=== PATIENT | male | born 1950 ===

== ENCOUNTER → 2017-06-18 | Outpatient (CLI) | payer MEDICARE ==
[2017-06-18 11:20] LABS: HGB 14.6 gm/dL (13.0-17.5); Hypochromasia Slight; MCH 27.2 pg (25.0-35.0); MCV 87.9 fL (80.0-100.0); Mean Platelet Volume 7.4; Platelet Count 307 k/uL (150-450); RBC 5.35 m/uL (4.30-5.90); RDW 14.4 % (11.5-15.5); WBC 7.1 k/uL (3.8-10.6)
[2017-06-18 11:36] LABS: Prothrombin Time 10.2 sec (9.0-12.0)
[2017-06-18 11:40] LABS: Albumin 4.3 g/dL (3.5-5.0); Bilirubin, Delta 0.3 mg/dL (0.0-0.2); Total Bilirubin 0.3 mg/dL (0.2-1.3); Total Protein 7.5 g/dL (6.3-8.2)
[2017-06-19 14:33] LABS: HCV Quant Log <1.08 (<1.08); HCV Quantitative Result <12 IU/mL (<12)
== END | disposition home or self-care (01) ==
LOC: LABWHC1 10:48
PROVIDERS: ATTEND Physician Assistant
DX: Z09 Encounter for follow-up examination after completed treatment for conditions other than malignant neoplasm (principal); Z86.19 Personal history of other infectious and parasitic diseases
CPT/HCPCS: 36415; 80076; 85027; 85610; 87522

== ENCOUNTER 2018-03-14 10:52 | Emergency (ER) | payer MEDICARE ==
[2018-03-14 10:56] VITALS: RESP 18; TEMP 97.8
--- NOTE | 2018-03-14 11:14 | ED ---
Wound/Laceration HPI - General Chief Complaint: Wound/Laceration Stated Complaint: thumb laceration Time Seen by Provider: 03/14/18 10:58 Source: patient, RN notes reviewed Mode of arrival: ambulatory Limitations: no limitations - History of Present Illness Initial Comments: 67-year-old male presents emergency Department chief complaint of right thumb laceration. Patient states that a piece of sheet metal cut his hand. Patient has full range of motion denies any paresthesias. Patient's tetanus is up-to- date this year. - Related Data Home Medications Medication Instructions Recorded Confirmed amLODIPine/ATORVASTATIN 1 each PO DAILY 10/28/13 12/18/13 [Amlodipine-Atorvast 5-20 mg] Ibuprofen [Advil] 200 mg PO DAILY PRN 03/14/18 03/14/18 Allergies Allergy/AdvReac Type Severity Reaction Status Date / Time Penicillins Allergy Unknown Verified 03/14/18 11:13 Childhood Review of Systems ROS Statement: Those systems with pertinent positive or pertinent negative responses have been documented in the HPI. ROS Other: All systems not noted in ROS Statement are negative. Past Medical History Past Medical History: COPD, Hyperlipidemia, Hypertension, Sleep Apnea/CPAP/BIPAP Additional Past Medical History / Comment(s): GALLBLADDER PAIN, CURRENTLY ON WEIGHT LOSS DIET FROM DR DAVIS History of Any Multi-Drug Resistant Organisms: None Reported Past Surgical History: Orthopedic Surgery Additional Past Surgical History / Comment(s): RIGHT ELBOW, WITH SCREWS Past Anesthesia/Blood Transfusion Reactions: No Reported Reaction Past Psychological History: No Psychological Hx Reported Smoking Status: Former smoker Past Alcohol Use History: None Reported Past Drug Use History: None Reported General Exam Limitations: no limitations General appearance: alert, in no apparent distress Head exam: Present: atraumatic, normocephalic, normal inspection Respiratory exam: Present: normal lung sounds bilaterally. Absent: respiratory distress, wheezes, rales, rhonchi, stridor Cardiovascular Exam: Present: regular rate, normal rhythm, normal heart sounds. Absent: systolic murmur, diastolic murmur, rubs, gallop, clicks Extremities exam: Present: other (Right thumb 2 cm laceration on the dorsal aspect full range of motion neurovascular intact no tendon involvement) Course Vital Signs 03/14/18 10:54 Temperature 97.8 F Pulse Rate 96 Respiratory 18 Rate Blood Pressure 175/110 O2 Sat by Pulse 95 Oximetry Procedures - Laceration Laceration #1 Consent Obtained: verbal consent Indication: laceration Site: hand (Right hand first digit) Size (cm): 2 Description: linear Depth: simple, single layer Anesthetic Used: lidocaine 1%, without epi Anesthesia Technique: local infiltration Amount (mls): 4 Pre-repair: wound explored, irrigated extensively, deep structures intact Type of Sutures: nylon Size of Sutures: 4-0 Number of Sutures: 4 Technique: simple, interrupted Patient Tolerated Procedure: well, no complications Medical Decision Making - Medical Decision Making 67-year-old male presented for right hand laceration. This was closed using sutures patient tolerated well there is no tendon involvement. Patient given wound care structures and return parameters. Disposition Clinical Impression: Laceration of right thumb Disposition: HOME SELF-CARE Condition: Stable Instructions: Care For Your Stitches (DC), Laceration (ED) Additional Instructions: Have sutures removed in 10 days.Please return to the Emergency Department if symptoms worsen or any other concerns. Is patient prescribed a controlled substance at d/c from ED?: No Referrals: Geovanni Davila MD [Primary Care Provider] - 1-2 days Time of Disposition: 11:14
[2018-03-14 11:26] VITALS: BP 144/79; PULSE 82
== END 2018-03-14 11:59 | disposition home or self-care (01) ==
LOC: EC 10:52
DX: S61.011A Laceration without foreign body of right thumb without damage to nail, initial encounter (principal); E78.5 Hyperlipidemia, unspecified; G47.30 Sleep apnea, unspecified; Z79.899 Other long term (current) drug therapy; Z99.89 Dependence on other enabling machines and devices; Z88.0 Allergy status to penicillin; Z87.891 Personal history of nicotine dependence; W26.8XXA Contact with other sharp object(s), not elsewhere classified, initial encounter
CPT/HCPCS: 12001; 99282

== ENCOUNTER → 2019-08-28 | Outpatient (CLI) | payer MEDICARE ==
--- NOTE | 2019-08-28 17:02 | CTL ---
EXAMINATION TYPE: CT Low Dose Lung DATE OF EXAM ORDERED: 08/28/2019 COMPARISON: None HISTORY: . Low Dose CT Lung Screening IV CONTRAST USED: None. SCREENING VISIT: First visit COMPARISON: None. TECHNIQUE: Low dose computed tomography scan was performed through the chest at 1 millimeter thick se ctions and reconstructed images in the coronal plane at [address] DIAGNOSTIC QUALITY: Somewhat limited given streak artifact from patient body habitus. FINDINGS: LUNG NODULES: Not presentLeft lung: no nodules identified.Right lung: no nodules identified. LUNGS: COPD: Severity: None Fibrosis: Severity:None Lymph nodes: None Other findings: None RIGHT PLEURAL SPACE: Effusion: None Calcification: None Thickening: None Pneumothorax: None LEFT PLEURAL SPACE: Effusion: None Calcification: None Thickening: None Pneumothorax: None HEART: Heart Size: Mildly enlarged Coronary calcification: Mild Pericardial effusion: None OTHER FINDINGS: Upper abdomen: No significant abnormality Bony thorax: Degenerative changes Supraclavicular region: No significant abnormalityOther: No significant abnormalityI IMPRESSION: Limited study although no discrete pulmonary nodule is identified with certainty. FOLLOW UP CT CHEST RECOMMENDATION: Follow-up screening in one year. Smoking cessation recommended. CT LUNG RAD: LUNG RAD CATEGORY negative category 1.
--- NOTE | 2019-09-03 16:00 | ECHOF ---
Referral Reason:[id number] PERSONAL HX TOBACCO USE/NICOTINE DEPEND MEASUREMENTS -------- HEIGHT: 165.1 cm WEIGHT: 136.1 kg BP: RVIDd: 4.0 cm (< 3.3) IVSd: 1.1 cm (0.6 - 1.1) LVIDd: 5.1 cm (3.9 - 5.3) LVPWd: 1.3 cm (0.6 - 1.1) IVSs: 1.4 cm LVIDs: 2.4 cm LVPWs: 1.4 cm LA Diam: 4.0 cm (2.7 - 3.8) Ao Diam: 3.1 cm (2.0 - 3.7) AV Cusp: 2.2 cm (1.5 - 2.6) MV EXCURSION: 19.390 mm (> 18.000) MV EF SLOPE: 58 mm/s (70 - 150) EPSS: 0.5 cm MV E Ronald: 0.77 m/s MV DecT: 228 ms MV A Ronald: 0.78 m/s MV E/A Ratio: 0.99 RAP: 5.00 mmHg RVSP: 23.88 mmHg FINDINGS -------- Sinus rhythm. This was a technically adequate study. Morbid Obesity There is mild concentric left ventricular hypertrophy. Overall left ventricular systolic function i s low-normal with, an EF between 50 - 55 %. The right ventricle is moderate to severely enlarged. The left atrial size is normal. The right atrial size is normal. There is mild aortic valve sclerosis. There is no evidence of aortic regurgitation. Mild mitral annular calcification present. Mild mitral regurgitation is present. Mild tricuspid regurgitation present. The right ventricular systolic pressure, as measured by Doppl er, is 23.88mmHg. The pulmonic valve was not well visualized. The aortic root size is normal. Echo free space represents a pericardial fat pad. CONCLUSIONS -------- 1. Sinus rhythm. 2. This was a technically adequate study. 3. Morbid Obesity 4. There is mild concentric left ventricular hypertrophy. 5. Overall left ventricular systolic function is low-normal with, an EF between 50 - 55 %. 6. The right ventricle is moderate to severely enlarged. 7. The left atrial size is normal. 8. The right atrial size is normal. 9. There is mild aortic valve sclerosis. 10. Mild mitral annular calcification present. 11. Mild mitral regurgitation is present. 12. Mild tricuspid regurgitation present. 13. The right ventricular systolic pressure, as measured by Doppler, is 23.88mmHg. 14. The pulmonic valve was not well visualized. 15. The aortic root size is normal. 16. Echo free space represents a pericardial fat pad. AIRPLANE FUELER: Cinthya Chisholm RDCS
== END | disposition home or self-care (01) ==
LOC: RADCTMAIN 14:44
PROVIDERS: ATTEND Family Medicine
DX: R06.09 Other forms of dyspnea (principal)
CPT/HCPCS: 93306; G0297

== ENCOUNTER 2019-11-22 20:49 | Observation (INO) | payer MEDICARE ==
[2019-11-22] MEDS ORDERED: IPRATROPIUM-ALBUTEROL 3 ML NEB INHALATION STA ×3 (21:09→22:37)
[2019-11-22] MEDS ORDERED: methylPREDNISolone SOD SUCCI 125 MG/2 ML VIAL IV STA (21:09)
--- NOTE | 2019-11-22 21:10 | ED ---
SOB HPI - General Chief Complaint: Shortness of Breath Stated Complaint: LEBRON Time Seen by Provider: 11/22/19 21:08 Source: patient Mode of arrival: ambulatory Limitations: no limitations - History of Present Illness Initial Comments: Patient is a 69-year-old male with history of COPD presenting to emergency Department with chief complaint of shortness of breath. Patient reports he has developed increasing shortness of breath over the last 3 days with audible wheezing. Patient reports his nebulized ipratropium is not keeping his COPD symptoms and control. Patient states that he also used an albuterol inhaler with minimal improvement in symptoms. Also reports a nonproductive cough without any sputum production. He denies any night sweats was to chills. Denies any chest pain nausea vomiting diarrhea. Patient states he is currently experiencing an acute flare up of his COPD. Patient states typically his primary care physician is able to take care of it. States the steroids work well for his symptoms. - Related Data Home Medications Medication Instructions Recorded Confirmed amLODIPine/ATORVASTATIN 1 tab PO DAILY 10/28/13 03/14/18 [Amlodipine-Atorvast 5-20 mg] Ibuprofen [Advil] 200 mg PO DAILY PRN 03/14/18 03/14/18 Allergies Allergy/AdvReac Type Severity Reaction Status Date / Time Penicillins Allergy Unknown Verified 11/22/19 20:57 Childhood Review of Systems ROS Statement: Those systems with pertinent positive or pertinent negative responses have been documented in the HPI. ROS Other: All systems not noted in ROS Statement are negative. Past Medical History Past Medical History: COPD, Hyperlipidemia, Hypertension, Sleep Apnea/CPAP/BIPAP Additional Past Medical History / Comment(s): GALLBLADDER PAIN, CURRENTLY ON WEIGHT LOSS DIET FROM DR DAVIS History of Any Multi-Drug Resistant Organisms: None Reported Past Surgical History: Orthopedic Surgery Additional Past Surgical History / Comment(s): RIGHT ELBOW, WITH SCREWS Past Anesthesia/Blood Transfusion Reactions: No Reported Reaction Past Psychological History: No Psychological Hx Reported Smoking Status: Former smoker Past Alcohol Use History: None Reported Past Drug Use History: None Reported General Exam Limitations: no limitations General appearance: alert, in no apparent distress, obese Head exam: Present: atraumatic, normocephalic, normal inspection Eye exam: Present: normal appearance, PERRL, EOMI Pupils: Present: normal accommodation ENT exam: Present: normal exam, normal oropharynx, mucous membranes moist, TM's normal bilaterally, normal external ear exam Neck exam: Present: normal inspection, full ROM. Absent: tenderness Respiratory exam: Present: wheezes (Bilateral wheezing, diffusely.), decreased breath sounds (Bilateral). Absent: normal lung sounds bilaterally, respiratory distress, rales Cardiovascular Exam: Present: regular rate, normal rhythm, normal heart sounds Extremities exam: Present: normal inspection, full ROM, normal capillary refill, other (+2 ulnar and radial pulses bilateral.). Absent: tenderness Back exam: Present: normal inspection, full ROM. Absent: tenderness, CVA tenderness (L), muscle spasm Neurological exam: Present: alert, oriented X3, normal gait Psychiatric exam: Present: normal affect, normal mood Skin exam: Present: warm, dry, intact, normal color Course Vital Signs 11/22/19 11/22/19 11/22/19 20:55 21:26 21:42 Temperature 98.7 F Pulse Rate 104 H 88 90 Respiratory 22 20 20 Rate Blood Pressure 165/74 O2 Sat by Pulse 91 L Oximetry 11/22/19 11/22/19 11/22/19 21:51 22:38 22:52 Temperature Pulse Rate 98 95 Respiratory 22 20 Rate Blood Pressure 139/65 O2 Sat by Pulse 94 L Oximetry 11/22/19 23:02 Temperature Pulse Rate 95 Respiratory Rate Blood Pressure O2 Sat by Pulse Oximetry Medical Decision Making - Medical Decision Making Patient is 69-year-old male with history of COPD presents emergency Department with chief complaint of shortness of breath. This has been ongoing since . On physical examination, patient denies some decreased breath sounds, although the patient has large body habitus. Patient also has diffuse bilateral wheezing. He denies any chest pain states this is his typical COPD exacerbation. He does not use oxygen at home. Patient was given 125 mg of Solu-Medrol and 3 DuoNeb treatments. On reevaluation, she continues to have wheezing although he states his dyspnea has slightly improved. He saturating 99% on 2 L of oxygen. Patient will be that if further medical management. Case discussed with Dr Pryor. Admitting is Dr De Souza - Lab Data Result diagrams: 11/22/19 21:22 11/22/19 21:22 Lab Results 11/22/19 11/22/19 11/22/19 Range/Units 21:22 21:22 21:22 WBC 11.0 H (3.8-10.6) k/uL RBC 5.02 (4.30-5.90) m/uL Hgb 14.0 (13.0-17.5) gm/dL Hct 44.9 (39.0-53.0) % MCV 89.5 (80.0-100.0) fL MCH 28.0 (25.0-35.0) pg MCHC 31.2 (31.0-37.0) g/dL RDW 15.2 (11.5-15.5) % Plt Count 284 (150-450) k/uL Neutrophils % 66 % Lymphocytes % 16 % Monocytes % 8 % Eosinophils % 8 % Basophils % 1 % Neutrophils # 7.2 (1.3-7.7) k/uL Lymphocytes # 1.7 (1.0-4.8) k/uL Monocytes # 0.9 (0-1.0) k/uL Eosinophils # 0.9 H (0-0.7) k/uL Basophils # 0.1 (0-0.2) k/uL Hypochromasia Slight Sodium 143 (137-145) mmol/L Potassium 4.1 (3.5-5.1) mmol/L Chloride 108 H (98-107) mmol/L Carbon Dioxide 27 (22-30) mmol/L Anion Gap 8 mmol/L BUN 18 (9-20) mg/dL Creatinine 1.02 (0.66-1.25) mg/dL Est GFR (CKD-EPI)AfAm 87 (>60 ml/min/1.73 sqM) Est GFR (CKD-EPI)NonAf 75 (>60 ml/min/1.73 sqM) Glucose 129 H (74-99) mg/dL Plasma Lactic Acid Horacio 1.3 (0.7-2.0) mmol/L Calcium 9.0 (8.4-10.2) mg/dL Total Bilirubin 0.3 (0.2-1.3) mg/dL AST 20 (17-59) U/L ALT 20 (4-49) U/L Alkaline Phosphatase 70 (38-126) U/L NT-Pro-B Natriuret Pep pg/mL Total Protein 7.4 (6.3-8.2) g/dL Albumin 4.2 (3.5-5.0) g/dL 09/26/20 Range/Units 21:22 WBC (3.8-10.6) k/uL RBC (4.30-5.90) m/uL Hgb (13.0-17.5) gm/dL Hct (39.0-53.0) % MCV (80.0-100.0) fL MCH (25.0-35.0) pg MCHC (31.0-37.0) g/dL RDW (11.5-15.5) % Plt Count (150-450) k/uL Neutrophils % % Lymphocytes % % Monocytes % % Eosinophils % % Basophils % % Neutrophils # (1.3-7.7) k/uL Lymphocytes # (1.0-4.8) k/uL Monocytes # (0-1.0) k/uL Eosinophils # (0-0.7) k/uL Basophils # (0-0.2) k/uL Hypochromasia Sodium (137-145) mmol/L Potassium (3.5-5.1) mmol/L Chloride (98-107) mmol/L Carbon Dioxide (22-30) mmol/L Anion Gap mmol/L BUN (9-20) mg/dL Creatinine (0.66-1.25) mg/dL Est GFR (CKD-EPI)AfAm (>60 ml/min/1.73 sqM) Est GFR (CKD-EPI)NonAf (>60 ml/min/1.73 sqM) Glucose (74-99) mg/dL Plasma Lactic Acid Horacio (0.7-2.0) mmol/L Calcium (8.4-10.2) mg/dL Total Bilirubin (0.2-1.3) mg/dL AST (17-59) U/L ALT (4-49) U/L Alkaline Phosphatase (38-126) U/L NT-Pro-B Natriuret Pep 115 pg/mL Total Protein (6.3-8.2) g/dL Albumin (3.5-5.0) g/dL Disposition Clinical Impression: Dyspnea, COPD exacerbation Disposition: ADMITTED IP TO THIS HOSP Condition: Fair Is patient prescribed a controlled substance at d/c from ED?: No Referrals: Geovanni Davila MD [Primary Care Provider] - 1-2 days Time of Disposition: 23:59
[2019-11-22 21:45] LABS: Basophils # (A) 0.1 k/uL (0-0.2); Basophils % (A) 1 %; Eosinophils # (A) 0.9 k/uL (0-0.7); Eosinophils % (A) 8 %; HCT 44.9 % (39.0-53.0); Hypochromasia Slight; Lymphocytes # (A) 1.7 k/uL (1.0-4.8); Lymphocytes % (A) 16 %; MCHC 31.2 g/dL (31.0-37.0); MCV 89.5 fL (80.0-100.0); Mean Platelet Volume 7.4; Monocytes # (A) 0.9 k/uL (0-1.0); Monocytes % (A) 8 %; Neutrophils # (A) 7.2 k/uL (1.3-7.7); Neutrophils % (A) 66 %; Platelet Count 284 k/uL (150-450); RBC 5.02 m/uL (4.30-5.90); RDW 15.2 % (11.5-15.5)
[2019-11-22 22:08] LABS: Albumin 4.2 g/dL (3.5-5.0); Potassium 4.1 mmol/L (3.5-5.1); Total Bilirubin 0.3 mg/dL (0.2-1.3); Total Protein 7.4 g/dL (6.3-8.2)
--- NOTE | 2019-11-22 22:12 | XR ---
EXAMINATION TYPE: XR chest 2V DATE OF EXAM: 11/22/2019 COMPARISON: 12/18/2013 HISTORY: Difficulty breathing TECHNIQUE: FINDINGS: There is some mild coarsening of the pulmonary interstitial markings. Heart size is normal. There is no pleural fluid. There are chest leads. IMPRESSION: New mild pulmonary interstitial edema compared to old exam. The appearance is nonspecific . No pleural fluid seen to suggest heart failure.
[2019-11-22] MEDS ORDERED: IPRATROPIUM-ALBUTEROL 3 ML NEB INHALATION PRN (23:57)
--- NOTE | 2019-11-23 01:54 | P.HPIM ---
History of Present Illness H&P Date: 11/23/19 Patient is a 69-year-old male with a PMH of COPD, hypertension, hyperkalemia, and objective sleep apnea who presented to the ED with complaints of shortness of breath ongoing for the past 3-4 days. He reports that despite taking his inhalers at home, he continues to have this dyspnea along with a nonproductive cough. He notes that in the past he has had multiple mild episodes when he would see his primary care doctor and would receive prednisone taper orally. He otherwise denied any additional complaints. He denied chest pain, fever, chills, nausea, vomiting, abdominal pain, or diarrhea. Chest x-ray revealed mild interstitial edema. Laboratory evaluation was reviewed with proBNP 115, l actic acid 1.3, and WBC count 11.0. Review of Systems Pertinent positives and negatives as discussed in HPI, a complete review of systems was performed and all other systems are negative. Past Medical History Past Medical History: COPD, Hyperlipidemia, Hypertension, Sleep Apnea/CPAP/BIPAP Additional Past Medical History / Comment(s): GALLBLADDER PAIN, CURRENTLY ON WEIGHT LOSS DIET FROM DR DAVIS History of Any Multi-Drug Resistant Organisms: None Reported Past Surgical History: Orthopedic Surgery Additional Past Surgical History / Comment(s): RIGHT ELBOW, WITH SCREWS Past Anesthesia/Blood Transfusion Reactions: No Reported Reaction Past Psychological History: No Psychological Hx Reported Smoking Status: Former smoker Past Alcohol Use History: None Reported Past Drug Use History: None Reported Medications and Allergies Home Medications Medication Instructions Recorded Confirmed Type amLODIPine/ATORVASTATIN 1 tab PO DAILY 10/28/13 03/14/18 History [Amlodipine-Atorvast 5-20 mg] Ibuprofen [Advil] 200 mg PO DAILY PRN 03/14/18 03/14/18 History Allergies Allergy/AdvReac Type Severity Reaction Status Date / Time Penicillins Allergy Unknown Verified 11/22/19 20:57 Childhood Physical Exam Vitals: Vital Signs Temp Pulse Resp BP Pulse Ox 11/23/19 01:02 100 20 165/86 98 11/22/19 23:02 95 11/22/19 22:52 95 11/22/19 22:38 98 20 139/65 94 L 11/22/19 21:51 22 11/22/19 21:42 90 20 11/22/19 21:26 88 20 11/22/19 20:55 98.7 F 104 H 22 165/74 91 L Intake and Output 11/22/19 11/22/19 11/23/19 14:59 22:59 06:59 Other: Weight 131.088 kg General: non toxic, no distress, appears at stated age, morbidly obese Derm: no unusual rashes/lesions no unusual ecchymoses, warm, dry Head: atraumatic, normocephalic, symmetric Eyes: EOMI, no lid lag, anicteric sclera, pupils equal round reactive to light ENT: Nose and ears atraumatic, no thrush, no pharyngeal erythema Neck: No thyromegaly, no cervical lymphadenopathy, trachea midline, supple Mouth: no lip lesion, mucus membranes moist Cardiovascular: S1S2 reg, no murmur, positive posterior tibial pulse bilateral, 2+ bilateral lower extremity pitting edema, capillary refill less than 2 seconds Lungs: Poor air entry bilaterally with expiratory wheezing, no rales or rhonchi appreciated, no accessory muscle use Abdominal: soft, nontender to palpation, no guarding, no appreciable organomegaly, normal bowel sounds Ext: no gross muscle atrophy, muscle strength 5 out of 5 in all 4 extremities grossly, no contractures, Neuro: CN II-XI grossly intact, light touch intact all 4 extremities, finger to nose within normal limits, Psych: Alert, oriented, appropriate affect Results CBC & Chem 7: 11/22/19 21:22 11/22/19 21:22 Labs: Abnormal Lab Results - Last 24 Hours (Table) 11/22/19 11/22/19 Range/Units 21:22 21:22 WBC 11.0 H (3.8-10.6) k/uL Eosinophils # 0.9 H (0-0.7) k/uL Chloride 108 H (98-107) mmol/L Glucose 129 H (74-99) mg/dL Assessment and Plan Plan: Acute COPD exacerbation -Continue with Solu-Medrol -DuoNeb's [id number] and as needed -Supplemental oxygen -Pulmonary consult -Supplemental sliding scale blood glucose monitoring Chronic conditions: Hypertension, hyperlipidemia -Continue home meds DVT prophylaxis -Heparin subq The patient is admitted with an anticipated less than 2 midnight stay for evaluation of acute COPD exacerbation CODE STATUS: Full Code Discussed with: Patient Anticipated discharge date: 11/[address]: Home A total of 35 minutes was spent on the care of this complex patient more than 50% of the time was spent in counseling and care coordination.
[2019-11-23] MEDS ORDERED: methylPREDNISolone SOD SUCCI 40 MG/ML 1 ML VIAL IV SCH (06:00)
[2019-11-23 06:58] LABS: Glucose,Whole Blood 158 mg/dL (75-99)
[2019-11-23] MEDS: IPRATROPIUM-ALBUTEROL 3 ML NEB INHALATION SCH ×4 (07:41→19:52)
[2019-11-23] MEDS: HEPARIN SODIUM,PORCINE 5,000 UNIT/ML 1 ML VIAL SQ SCH ×2 (08:01→15:49)
[2019-11-23] MEDS: INSULIN ASPART (NovoLOG) 100 UNIT/ML VIAL SQ SCH ×3 (08:02→16:18)
[2019-11-23] MEDS ORDERED: predniSONE 20 MG TAB PO SCH (09:00)
[2019-11-23] MEDS ORDERED: NON FORMULARY DRUG (Amlodipine Besylate/Benazepril [Amlodipine Besylate/Benazepril 10-40 M PO SCH (11:00)
--- NOTE | 2019-11-23 11:01 | P.PN ---
Subjective Progress Note Date: 11/23/19 Principal diagnosis: Acute COPD exacerbation Patient is doing well today. His shortness of breath is improving. He said that his breathing is not back to normal baseline yet. Objective - Vital Signs Vital signs: Vital Signs Temp 97.8 F 11/23/19 06:53 Pulse 102 H 11/23/19 07:49 Resp 19 11/23/19 06:53 BP 157/83 11/23/19 06:53 Pulse Ox 94 L 11/23/19 06:53 Intake & Output 11/22/19 11/23/19 11/23/19 18:59 06:59 18:59 Weight 131.088 kg Other: # Voids 1 1 - Exam General: The patient is awake and alert, in no distress Eye: there is normal conjunctiva bilaterally. Neck: The neck is supple, there is no JVD. Cardiovascular: Normal S1-S2, no S3-S4, no murmurs. Respiratory: Lungs slightly diminished with scattered wheezing Gastrointestinal: Abdomen is soft, nontender Musculoskeletal: There is no pedal edema. Neurological:. Speech is normal. Skin: Skin is warm and dry - Labs CBC & Chem 7: 11/22/19 21:22 11/22/19 21:22 Labs: Abnormal Lab Results - Last 24 Hours (Table) 11/22/19 11/22/19 11/23/19 Range/Units 21:22 21:22 06:57 WBC 11.0 H (3.8-10.6) k/uL Eosinophils # 0.9 H (0-0.7) k/uL Chloride 108 H (98-107) mmol/L Glucose 129 H (74-99) mg/dL POC Glucose (mg/dL) 158 H (75-99) mg/dL Assessment and Plan Assessment: This is a 69-year-old male with past medical history noted below who presented to the emergency room with worsening shortness of breath. Patient was evaluated in the ER and currently placed in observation for further management of his medical problems noted below. 1. Acute COPD exacerbation, received IV Solu-Medrol 125 mg in the ED. Continue prednisone 40 mg daily. DuoNeb scheduled. 2. Essential hypertension, blood pressure within acceptable range. Continue home medications. 3. Acute hypoxic respiratory failure requiring O2 via nasal cannula. Wean off O2 as tolerated for O2 sat greater than 90%. Patient is not on oxygen at home. 4. DVT prophylaxis with subcu heparin Today, I reviewed his medication list and lab work results. Encouraged ambulation. Wean off O2 as tolerated. That despite discharge home tomorrow.
[2019-11-23 11:16] LABS: Glucose,Whole Blood 178 mg/dL (75-99)
[2019-11-23] MEDS: lisinopriL 20 MG TAB PO SCH (11:34)
[2019-11-23] MEDS: amLODIPine 10 MG TAB PO SCH (11:35)
[2019-11-23 16:18] LABS: Glucose,Whole Blood 133 mg/dL (75-99)
[2019-11-23] MEDS ORDERED: LATANOPROST 0.005% OPHTH DROPS 2.5 ML BTL BOTH EYES SCH (21:00)
[2019-11-23 21:28] LABS: Glucose,Whole Blood 155 mg/dL (75-99)
[2019-11-24] MEDS: HEPARIN SODIUM,PORCINE 5,000 UNIT/ML 1 ML VIAL SQ SCH ×2 (00:49→08:17)
[2019-11-24 06:43] LABS: Glucose,Whole Blood 129 mg/dL (75-99)
[2019-11-24 08:11] VITALS: RESP 18; TEMP 97.9
[2019-11-24 08:13] VITALS: BP 141/87
[2019-11-24] MEDS: lisinopriL 20 MG TAB PO SCH (08:16)
[2019-11-24] MEDS: amLODIPine 10 MG TAB PO SCH (08:16)
[2019-11-24] MEDS: INSULIN ASPART (NovoLOG) 100 UNIT/ML VIAL SQ SCH ×2 (08:17→12:34)
[2019-11-24] MEDS: IPRATROPIUM-ALBUTEROL 3 ML NEB INHALATION SCH ×2 (08:51→12:12)
[2019-11-24] MEDS ORDERED: predniSONE 20 MG TAB PO SCH (09:00)
--- NOTE | 2019-11-24 10:16 | P.DS ---
Providers Date of admission: 11/24/19 09:20 Expected date of discharge: 11/24/19 Attending physician: Lillian De Souza MD Primary care physician: Geovanni Excela [facility] Course: This is a 69-year-old male with past medical history noted below that presented to the emergency room with worsening shortness of breath for the past few days. Patient was evaluated in the ER and admitted to the hospital for further management of his medical problems noted below. 1. Acute COPD exacerbation, received IV Solu-Medrol 125 mg in the ED. Continue prednisone 40 mg daily to finish 5 days course. DuoNeb every 4 hours. Chest x- ray showed mild pulmonary edema but no clinical evidence of CHF and BNP was normal. No infiltrate to suggest pneumonia. 2. Acute on chronic hypoxic respiratory failure now requiring 2 L of oxygen. Home oxygen will be set up. Patient will follow-up with his artist's representative in the office in one week as directed 3. Obstructive sleep apnea on CPAP at home 4. Essential hypertension, blood pressure within acceptable range. Continue home medications. Patient overall condition improved throughout his hospital stay. His shortness of breath resolved. He will be discharged home in a stable condition. For further details about this observation stay please refer to the electronic chart. Patient Condition at Discharge: Stable Plan - Discharge Summary Discharge Rx Participant: No New Discharge Prescriptions: New predniSONE [Deltasone] 40 mg PO DAILY 5 Days #10 tab Continue Vitamin D3 (Unknown Strength) 1 tab PO DAILY Fish Oil (Unknown Strength) 1 tab PO DAILY amLODIPine BESYLATE/BENAZEPRIL [amLODIPine BESYLATE/BENAZEPRIL 10-40 MG] 1 cap PO AC-BRKFST Latanoprost/Pf [Latanoprost 0.005% Eye Drop] 1 drop BOTH EYES HS Ipratropium-Albuterol Nebulize [Duoneb 0.5 mg-3 mg/3 ml Soln] 3 ml INHALATION RT-Q4H PRN PRN Reason: Shortness Of Breath Albuterol Inhaler [Ventolin Hfa Inhaler] 2 puff INHALATION RT-Q4H PRN PRN Reason: Shortness Of Breath [employer] Nsaid (Unknown Strength) 1 tab PO DAILY PRN PRN Reason: knee pain Discharge Medication List Albuterol Inhaler [Ventolin Hfa Inhaler] 2 puff INHALATION RT-Q4H PRN 11/23/19 [History] Fish Oil (Unknown Strength) 1 tab PO DAILY 11/23/19 [History] Ipratropium-Albuterol Nebulize [Duoneb 0.5 mg-3 mg/3 ml Soln] 3 ml INHALATION RT-Q4H PRN 11/23/19 [History] Latanoprost/Pf [Latanoprost 0.005% Eye Drop] 1 drop BOTH EYES HS 11/23/19 [History] [employer] Nsaid (Unknown Strength) 1 tab PO DAILY PRN 11/23/19 [History] Vitamin D3 (Unknown Strength) 1 tab PO DAILY 11/23/19 [History] amLODIPine BESYLATE/BENAZEPRIL [amLODIPine BESYLATE/BENAZEPRIL 10-40 MG] 1 cap PO AC-BRKFST 11/23/19 [History] predniSONE [Deltasone] 40 mg PO DAILY 5 Days #10 tab 11/24/19 [Rx] Follow up Appointment(s)/Referral(s): Geovanni Davila MD [Primary Care Provider] - 1-2 days Jovita Vora MD [STAFF PHYSICIAN] - 1 Week Discharge Disposition: HOME SELF-CARE
[2019-11-24 12:25] VITALS: PULSE 88
== END 2019-11-24 14:36 | disposition home or self-care (01) ==
LOC: EC 20:49 → 1SOBS 23:58 → INTOOBSV 11-24 09:20 → OBSVTOIN 11-24 09:20 → UNDODISIN 11-24 14:36
PROVIDERS: ADMIT Internal Medicine; ATTEND Internal Medicine
DX: J44.1 Chronic obstructive pulmonary disease with (acute) exacerbation (principal); J96.21 Acute and chronic respiratory failure with hypoxia; G47.33 Obstructive sleep apnea (adult) (pediatric); I10 Essential (primary) hypertension; E78.5 Hyperlipidemia, unspecified; Z99.89 Dependence on other enabling machines and devices; Z79.1 Long term (current) use of non-steroidal anti-inflammatories (NSAID); Z79.899 Other long term (current) drug therapy; Z88.0 Allergy status to penicillin; Z87.891 Personal history of nicotine dependence; Z98.890 Other specified postprocedural states
CPT/HCPCS: 96372 ×2; 96376; 96374; 99285; 36415; 94640 ×6; 93005; 83880; 80053; 83605; 85025; 71046; G0378 ×2; J1644 ×2; J2920; J2930; J7512 ×2

== ENCOUNTER → 2020-04-16 | Outpatient (CLI) | payer MEDICARE ==
--- NOTE | 2020-04-16 14:26 | US ---
EXAMINATION TYPE: US duplex aorta DATE OF EXAM: 04/16/2020 COMPARISON: CLINICAL HISTORY: Z13.6 screening AAA. HTN. Previous smoker. No history of AAA per patient. EXAM MEASUREMENTS: Abdominal Aorta: Proximal: 2.7 x 2.8 cm Mid: 2.2 x 2.5 cm Distal: 2.0 x 2.0 cm Bifurcation: Not visualized Limited visualization due to patient body habitus and overlying bowel gas No AAA visualized in portions seen. IMPRESSION: 1. Normal abdomen aorta
== END | disposition home or self-care (01) ==
LOC: RADUSWWP 07:44
PROVIDERS: ATTEND Family Medicine
DX: Z13.6 Encounter for screening for cardiovascular disorders (principal)
CPT/HCPCS: 93979

== ENCOUNTER 2023-09-14 09:29 | Day surgery (SDC) | payer MEDICARE ==
[2023-09-11 15:57] VITALS: BMI 45.0
[~2023-09-14 09:29] MED LIST: LACTATED RINGERS 1,000 ML IV SCH; LIDOCAINE 1% (10MG/ML) FOR IV START INTRADERMA PRN
[2023-09-14 10:08] VITALS: TEMP 97.4
[2023-09-14 10:25] LABS: Glucose,Whole Blood 101 mg/dL (70-110)
[2023-09-14] MEDS: IV FLUID CONTINUATION 1,000 ML IV ONE (10:30)
[2023-09-14] MEDS ORDERED: PROPOFOL 10 MG/ML 20 ML VIAL IV ONE (11:13)
--- NOTE | 2023-09-14 11:35 | P.PCN ---
Date of Procedure: 09/14/23 Procedure(s) Performed: BRIEF HISTORY: Patient is a 72-year-old pleasant White male scheduled for an elective colonoscopy as a part of Screening for colon cancer/positive:cologuard PROCEDURE PERFORMED: Colonoscopy With snare polypectomy. PREOPERATIVE DIAGNOSIS: Screening for colon cancer/positive cologuard:. IV sedation per Anesthesia. PROCEDURE: After informed consent was obtained, the patient, was brought into the endoscopy unit. IV sedation was administered by Anesthesia under continuous monitoring. Digital rectal examination was normal. Initially the Olympus CF-160 flexible video colonoscope was then inserted in the rectum, gradually advanced into the cecum without any difficulty. Careful examination was performed as the scope was gradually being withdrawn. Ileocecal valve and the appendiceal orifice were visualized and appeared normal. Prep was excellent. Mucosa of the cecum,Had a 3 mm polyp that was removed by cold biopsy. Rest of the ascending colon,Appeared normal. In the transverse colon there was a 1.5 cm broad-based polyp removed by snare polypectomy. In the descending colon there was a 5 mm and 6 mm polyp removed by cold snare polypectomy. Rest of the transverse colon, descending colon, sigmoid colon, and rectum appeared normal. Retroflexion was performed in the rectum and no lesions were seen. The patient tolerated the procedure well. IMPRESSION: 3 mm cecal polyp status post cold biopsy 1.5 cm broad-based proximal Transversecolon polyp status post snare polypectomy 5 mm and 6 mm reasoning colon polyp status post polypectomy RECOMMENDATIONS: Findings of this examination were discussed with the patient as well as his family.He was advised to follow with the biopsy biopsies results. If the biopsies adenoma he can have a repeat colonoscopy in 3 years.
[2023-09-14 11:54] VITALS: BP 116/77; PULSE 76; RESP 16
== END 2023-09-14 12:15 | disposition home or self-care (01) ==
LOC: ORWHC2ENDO 09:29
PROVIDERS: ATTEND Internal Medicine Gastroenterology
DX: D12.0 Benign neoplasm of cecum (principal); D12.3 Benign neoplasm of transverse colon; D12.4 Benign neoplasm of descending colon; I10 Essential (primary) hypertension; E78.5 Hyperlipidemia, unspecified; E66.9 Obesity, unspecified; G47.33 Obstructive sleep apnea (adult) (pediatric); J44.9 Chronic obstructive pulmonary disease, unspecified; K21.9 Gastro-esophageal reflux disease without esophagitis; Z87.891 Personal history of nicotine dependence; Z79.899 Other long term (current) drug therapy; Z88.0 Allergy status to penicillin
CPT/HCPCS: 88305; 45380; 45385; J2704

== ENCOUNTER → 2024-03-13 | Outpatient (CLI) | payer MEDICARE ==
--- NOTE | 2024-03-13 09:26 | US ---
EXAMINATION TYPE: US abdomen comp/pelvis limited DATE OF EXAM: 03/13/2024 COMPARISON: 10/28/13 CLINICAL INDICATION: Male, 73 years old with history of R10.11 Right upper quadrant pain; RUQ pain x 10 years TECHNIQUE: Grayscale color Doppler imaging of the abdomen and pelvis. FINDINGS: EXAM MEASUREMENTS: Liver Length: 17.6 cm Gallbladder Wall: 0.26 cm CBD: 0.32 cm Spleen: 9.6 cm Right Kidney: 11.8 x 5.3 x 5.0 cm Left Kidney: 10.8 x 4.9 x 5.2 cm Pancreas: parts seen appear wnl Liver: heterogeneous and enlarged Gallbladder: gallstones seen CBD: wnl Spleen: wnl Right Kidney: wnl Left Kidney: wnl Upper IVC: wnl Abd Aorta: obscured by bowel gas Bladder: layer of debris seen Bilateral Jets Seen yes IMPRESSION: 1. No evidence for acute process. 2. Hepatomegaly with increased echotexture correlate for hepatocellular disease with serum markers. [facility] [place], , 03/13/2024 9:24 AM
== END | disposition home or self-care (01) ==
LOC: RADUSWWP 08:19
PROVIDERS: ATTEND Family Medicine
DX: R16.0 Hepatomegaly, not elsewhere classified (principal)
CPT/HCPCS: 76700; 76857